=== PATIENT | female | born 1970 | race Caucasian/White ===

== ENCOUNTER 2018-03-30 23:57 | Emergency (ER) | payer OTHER, MEDICARE ==
--- NOTE | 2018-03-31 00:14 | ED GENERAL ADULT ---
History of Present Illness General Chief Complaint: Foot or Ankle Injury Stated Complaint: SLIP AND FALL AT CONCERT, L ANKLE INJURY Source: patient, family Exam Limitations: intoxication Vital Signs & Intake/Output Vital Signs & Intake/Output Vital Signs Date Time Temp Pulse Resp B/P B/P Pulse O2 O2 Flow FiO2 Mean Ox Delivery Rate 03/31 0018 97.7 97 22 108/69 91 Allergies Coded Allergies: No Known Allergies (03/31/18) Reconcile Medications Ibuprofen 600 MG TABLET 1 TAB PO TID PRN PAIN with food Oxycodone HCl/Acetaminophen (Percocet 5-325 MG Tablet) 5 MG-325 MG TABLET 1 TAB PO Q8 PRN PAIN Triage Nurses Notes Reviewed? yes Onset: Abrupt Duration: hour(s): Timing: single episode today HPI: 47 year old woman with no reported past medical history seen for evaluation an ankle injury. Patient was reportedly in [place] at a concert where she was walking down hill when she suddenly lost her balance and subsequently fell. She reports moderate / severe pain to her left ankle afterwards and is unable to bear weight on it. She denies any other injuries, head strike, or loss of consciousness. Past History Travel History Traveled to [place] past 21 day No Medical History Any Pertinent Medical History? see below for history Neurological: NONE EENT: NONE Cardiovascular: NONE Respiratory: NONE Gastrointestinal: NONE Hepatic: NONE Renal: NONE Musculoskeletal: NONE Psychiatric: NONE Endocrine: NONE Blood Disorders: NONE Cancer(s): NONE Surgical History Surgical History: none Family History Hx Contributory? No Review of Systems Review of Systems Constitutional: Reports: no symptoms. EENTM: Reports: no symptoms. Respiratory: Reports: no symptoms. Cardiovascular: Reports: no symptoms. GI: Reports: no symptoms. Genitourinary: Reports: no symptoms. Musculoskeletal: Reports: joint pain, joint swelling. Skin: Reports: no symptoms. Neurological/Psychological: Reports: no symptoms. Hematologic/Endocrine: Reports: no symptoms. Immunologic/Allergic: Reports: no symptoms. Physical Exam Physical Exam General Appearance: well developed/nourished, no apparent distress, alert, awake , mild distress Head: atraumatic, normal appearance Eyes: Bilateral: normal appearance, PERRL, EOMI. Ears, Nose, Throat: normal pharynx, normal ENT inspection Neck: normal inspection, supple, full range of motion Respiratory: normal breath sounds, no respiratory distress, quiet respiration Cardiovascular: regular rate/rhythm Peripheral Pulses: 4+ radial (R), 4+ radial (L) Gastrointestinal: soft, non-tender Back: normal inspection, normal range of motion Extremities: normal inspection, normal capillary refill, swollen left ankle with visibly deformity, pulses / sensation intact, limited range of movement Neurologic/Psych: no motor/sensory deficits, awake, alert Skin: intact, normal color, warm/dry Comments: The patient has severe pain and tenderness to the left medial malleolus. There is ligament instability to the left ankle. She has an excellent left dorsalis pedis pulse. Capillary refill to all toes of the left foot is less than 2 seconds. The color is normal. She has no paresthesias. X-ray reveals a trimalleolar fracture. She was placed in a sugar tong and posterior short leg splint. The films and management were reviewed with the promotions assistant sales marketing orthopedist Dr. Del Valle was in agreement with the plan. He will see the patient in follow-up. I discussed the signs and symptoms of compartment syndrome and neurovascular compromise with the patient. She will return to the emergency department immediately should she get increasing pain or numbness to the left foot. Core Measures ACS in differential dx? No CVA/TIA Diagnosis: No Sepsis Present: No Sepsis Focused Exam Completed? No Progress Differential Diagnoses I considered the following diagnoses in my evaluation of the patient: ankle fracture, ankle sprain, tibia fracture/sprain, mechanical fall Plan of Care: Orders Procedure Date/time Status Durable Medical Equipment 03/31 152 Active Laboratory Tests 03/31/18 0011: Urine Test Cancelled Initial ED EKG: none Departure Departure Disposition: HOME OR SELF CARE Condition: Stable Clinical Impression Primary Impression: Trimalleolar fracture Referrals: Karis Story APRN (PCP/Family) Departure Forms: Customer Survey General Discharge Information Prescriptions: Current Visit Scripts Ibuprofen 1 TAB PO TID PRN PAIN #30 TAB with food Oxycodone HCl/Acetaminophen (Percocet 5-325 MG Tablet) 1 TAB PO Q8 PRN PAIN #12 TAB Comments PATIENT: JAMSHID VARGAS PRESENT AGE: 47 PATIENT ACCOUNT NO: [id number] : 68 LOCATION: [facility] ORDERING PHYSICIAN: Geo Ramirez DO SERVICE DATE: 03/31/18 EXAM TYPE: RAD - XRY-ANKLE 3 OR MORE VIEWS L EXAMINATION: XR ANKLE, LEFT CLINICAL INFORMATION: Post splinting and positioning COMPARISON: 03/31/2018 TECHNIQUE: AP, lateral, and mortise views of the left ankle. FINDINGS: Overlying splint material obscures fine bony detail. There are redemonstrated fractures of the medial malleolus, posterior malleolus, and distal fibula. There is mild displacement across fracture lines which does not appear significantly changed when compared to prior. Alignment across the ankle mortise appears grossly preserved. IMPRESSION: Redemonstrated mildly displaced fractures of the medial malleolus, posterior malleolus, and distal fibula, similar to prior. DICTATED BY: Joseph Overton MD DATE/TIME DICTATED:03/31/18242 DIRECTOR OF STUDENT SERVICES:NUHA DATE/TIME TRANSCRIBED:03/31/18242 CONFIDENTIAL, DO NOT COPY WITHOUT APPROPRIATE AUTHORIZATION. <Electronically signed in Other Vendor System> SIGNED BY: Joseph Overton MD 03/31/18 024 Critical Care Note Critical Care Note Critical Care Time: non-applicable
[2018-03-31 00:18] VITALS: BP 108/69
--- NOTE | 2018-03-31 01:31 | RADIOLOGY REPORT ---
EXAMINATION: XR ANKLE, LEFT XR FOOT, LEFT CLINICAL INFORMATION: Fall, deformity COMPARISON: None TECHNIQUE: 3 views of the left ankle. 3 views of the left foot. FINDINGS: Left ankle: Overlying splint material partially obscures fine bony detail in some views. There is a transverse fracture through the medial malleolus with mild displacement. There is a mildly displaced oblique fracture of the distal fibula with the inferior extent of the fracture line at the level of the tibiotalar articulation; a few small comminuted fibular fracture fragments are noted. There is also a mildly displaced posterior malleolus fracture of the distal tibia. There is mild widening of the tibiotalar articulation anteriorly. Associated soft tissue swelling is noted at the ankle. Left foot: Alignment throughout the foot is anatomic. Overlying splint material obscures fine bony detail in the proximal to mid foot. No acute fracture is identified in the foot. There is redemonstration of distal tibial and fibular fractures as detailed above. IMPRESSION: 1. Fractures of the medial malleolus, posterior malleolus, and distal fibula as described above with overall mild displacement of fracture fragments. 2. No additional acute findings identified in the left foot.
[2018-03-31] MEDS ORDERED: PERCOCET 5-3251 EACH PO (02:31)
[2018-03-31] MEDS ORDERED: IBUPROFEN600 M1 PO (02:31)
--- NOTE | 2018-03-31 02:49 | RADIOLOGY REPORT ---
EXAMINATION: XR ANKLE, LEFT CLINICAL INFORMATION: Post splinting and positioning COMPARISON: 03/31/2018 TECHNIQUE: AP, lateral, and mortise views of the left ankle. FINDINGS: Overlying splint material obscures fine bony detail. There are redemonstrated fractures of the medial malleolus, posterior malleolus, and distal fibula. There is mild displacement across fracture lines which does not appear significantly changed when compared to prior. Alignment across the ankle mortise appears grossly preserved. IMPRESSION: Redemonstrated mildly displaced fractures of the medial malleolus, posterior malleolus, and distal fibula, similar to prior.
== END 2018-03-31 02:36 ==
LOC: ERH 23:57
DX: S82.852A Displaced trimalleolar fracture of left lower leg, initial encounter for closed fracture (principal); W19.XXXA Unspecified fall, initial encounter; Y93.01 Activity, walking, marching and hiking
CPT/HCPCS: 73610-LT; 73630-LT; 81025